=== PATIENT | male | born 1990 | race Caucasian/White ===

== ENCOUNTER → 2017-11-14 | Outpatient (CLI) | payer OTHER | LOC: RAD 09:33 | DX: M25.532 Pain in left wrist (principal); R93.7 Abnormal findings on diagnostic imaging of other parts of musculoskeletal system ==

== ENCOUNTER → 2022-05-03 | Outpatient (CLI) | payer OTHER | LOC: LAB 09:36 | DX: Z20.822 Contact with and (suspected) exposure to COVID-19 (principal); J02.9 Acute pharyngitis, unspecified; R11.0 Nausea; R05.1 Acute cough ==

== ENCOUNTER → 2023-12-28 | Outpatient (CLI) | payer OTHER | LOC: LAB 13:53 | DX: N45.1 Epididymitis (principal) ==

== ENCOUNTER 2024-01-06 08:00 | Outpatient (RCR) | payer OTHER | END 2024-02-03 | LOC: PT | DX: M54.32 Sciatica, left side (principal) ==

== ENCOUNTER → 2024-09-25 | Outpatient (CLI) | payer OTHER | LOC: RAD 09:20 | DX: N50.89 Other specified disorders of the male genital organs (principal) ==